=== PATIENT | male | born 1970 | race Caucasian/White ===

== ENCOUNTER → 2018-11-05 | Outpatient (CLI) | payer OTHER ==
--- NOTE | 2018-11-05 14:04 | CT ---
EXAMINATION TYPE: CT ankle LT wo con DATE OF EXAM: 11/05/2018 COMPARISON: Radiograph 10/31/2018 HISTORY: 47-year-old male Displaced bimalleolar Fracture of Left ankle TECHNIQUE: Contiguous axial scanning of the left ankle without IV contrast. Coronal and sagittal shyanne nstructions performed. CT DLP: 240 mGycm Automated exposure control for dose reduction was used. FINDINGS: Generalized soft tissue swelling. Overlying plaster cast. There is impacted and severely comminuted fracture of the distal fibula with lateral displacement of 6 mm and lateral angulation as well. The degree of angulation away from the tibia suggests tears of t he anterior and posterior syndesmotic ligaments. There is lateral displacement of the foot relative to the tibial mortise with transverse fracture thr ough the base of the medial malleolus, 6 mm of lateral displacement, and 8 mm of distraction of fract ure. No posterior malleolus fracture is identified. Extensive punctate bony debris is present above the ankle fractures. The talar dome itself appears to be intact. Additional punctate bony debris in the expected location of the ATFL and PTFL. No additional acute fracture seen. There is some thickening along the flexor tendons along the plantar aspect of the mid to hindfoot jus t prior to the knot of Jaime measuring 2.9 cm long and 1.3 cm wide, axial image 72 and sagittal image 29. IMPRESSION: 1. UNSTABLE BIMALLEOLAR ANKLE FRACTURES. THE LATERAL MALLEOLUS FRACTURE IS IMPACTED, MARKEDLY COMMINU ALMAZ, AND LATERALLY ANGULATED. THE DEGREE OF ANGULATION AWAY FROM THE TIBIA RAISES SUSPICION FOR UNDER LYING TEARS OF THE ANTERIOR AND POSTERIOR SYNDESMOTIC LIGAMENTS. 2. TRANSVERSE FRACTURE THROUGH THE BASE OF THE MEDIAL MALLEOLUS SHOWS 6 MM OF LATERAL DISPLACEMENT AN D 8 MM OF FRACTURE DISTRACTION. THERE IS AN UNSTABLE ANKLE MORTISE WITH LATERAL SUBLUXATION OF THE TA TRACY/FOOT. 3. PUNCTATE BONY DEBRIS IN THE EXPECTED REGION OF THE ATFL AND PTFL SUGGESTS LIGAMENT TEARS. 4. ELONGATED THICKENING ALONG THE FLEXOR TENDONS AT THE PLANTAR ASPECT OF THE MID TO HINDFOOT JUST OK IOR TO THE KNOT OF JAIME (THICKENING MEASURING 2.9 X 1.3 CM). THIS COULD REPRESENT A GANGLION CYST, F OCAL TENOSYNOVITIS, OR OTHER ABNORMALITY SUCH A GIANT CELL TUMOR OF THE TENDON SHEATH.
== END | disposition home or self-care (01) ==
LOC: RADCTMAIN 13:04
PROVIDERS: ATTEND Orthopaedic Surgery
DX: S82.842A Displaced bimalleolar fracture of left lower leg, initial encounter for closed fracture (principal)

== ENCOUNTER 2018-11-27 10:24 | Day surgery (SDC) | payer OTHER ==
[2018-11-24 12:52] VITALS: BMI 23.0
[~2018-11-27 10:24] MED LIST: HYDROmorphone 0.5 MG/0.5 ML SYRINGE IVP PRN; LACTATED RINGERS 1,000 ML IV SCH; MORPHINE SULFATE 4 MG/ML SYRINGE IV PRN; ceFAZolin IN SWFI 2 GM/20 ML SYRINGE IVP ONE
[2018-11-27 11:20] LABS: Basophils # (A) 0.1 k/uL (0-0.2); Basophils % (A) 1 %; Eosinophils # (A) 0.3 k/uL (0-0.7); Eosinophils % (A) 3 %; HCT 48.4 % (39.0-53.0); HGB 15.9 gm/dL (13.0-17.5); Lymphocytes % (A) 12 %; MCH 32.8 pg (25.0-35.0); MCHC 32.9 g/dL (31.0-37.0); MCV 99.8 fL (80.0-100.0); Mean Platelet Volume 7.2; Monocytes # (A) 0.4 k/uL (0-1.0); Monocytes % (A) 5 %; Neutrophils # (A) 6.7 k/uL (1.3-7.7); Neutrophils % (A) 78 %; Platelet Count 449 k/uL (150-450); RBC 4.85 m/uL (4.30-5.90); RDW 13.4 % (11.5-15.5); WBC 8.6 k/uL (3.8-10.6)
[2018-11-27] MEDS ORDERED: MIDAZOLAM (PF) 2 MG/2 ML VIAL IVP ONE (12:14)
[2018-11-27] MEDS ORDERED: fentaNYL (PF) 50 MCG/ML 2 ML AMP IVP ONE (12:15)
[2018-11-27] MEDS ORDERED: LIDOCAINE 2%-EPI 1:100,000 20 ML VIAL ONE (12:25)
[2018-11-27] MEDS ORDERED: ONDANSETRON 4 MG/2 ML VIAL IVP ONE (12:32)
[2018-11-27] MEDS ORDERED: DEXAMETHASONE SOD PHOSPHATE 10 MG/ML 1 ML VIAL IV ONE (12:33)
[2018-11-27] MEDS ORDERED: LACTATED RINGERS 1,000 ML IV ONE ×2 (12:36→14:13)
--- NOTE | 2018-11-27 13:55 | P.ONQ ---
Anesthesiology Proc Note - PNB - Peripheral Nerve Block Performed Left Adductor Canal Single Procedure Start Time: 12:13 Procedure Stop Time: 12:15 Indication: Acute Post-Operative Pain, Analgesia, Requested by physician Preparation: Sterile Prep Position: Supine Catheter: Indwelling Needle Types: On-Q Needle Size: 100mm (4") Needle Gauge: 21 Technique: Ultrasound Injectate: Other (see comment) (0.25% ropivacaine 10cc with 2% lidocaine with epi 1:200k 10cc) Blood Aspirated: No Pain Paresthesia on Injection Noted: No Resistance on Injection: Normal Events: Uneventful and Well Tolerated
--- NOTE | 2018-11-27 13:56 | P.ONQ ---
Anesthesiology Proc Note - PNB - Peripheral Nerve Block Performed Left Popliteal Single Procedure Start Time: 12:16 Procedure Stop Time: 12:19 Indication: Acute Post-Operative Pain, Analgesia, Requested by physician Sedation Type: Sedate with meaningful contact maintained Preparation: Sterile Prep Position: Supine Catheter: Indwelling Needle Types: On-Q Needle Size: 100mm (4") Needle Gauge: 21 Technique: Ultrasound Injectate: Other (see comment) (0.25% ropivacaine 10cc with 2% lidocaine with epi 1:200k 10cc) Blood Aspirated: No Pain Paresthesia on Injection Noted: No Resistance on Injection: Normal Events: Uneventful and Well Tolerated
--- NOTE | 2018-11-27 14:37 | P.OP ---
Date of Procedure: 11/27/18 Preoperative Diagnosis: 1. Closed left bimalleolar ankle fracture 2. Current every day cigarette smoker Postoperative Diagnosis: 1. Closed left bimalleolar ankle fracture, 4 weeks out from initial injury 2. Current every day cigarette smoker Procedure(s) Performed: 1. Open reduction and internal fixation of left bimalleolar ankle fracture 2. Application of joint stress by physician for radiography, left ankle 3. Application of short leg splint by physician, left ankle Anesthesia: DUNCANA Surgeon: Denis Borja Hypo Splasher #1: Vu Tapia Estimated Blood Loss (ml): 10 IV fluids (ml): 900 Pathology: none sent Condition: stable Disposition: PACU Indications for Procedure: The patient is a very pleasant 47-year-old male with a medical history significant for being a current every day cigarette smoker who sustained a left bimalleolar ankle fracture in October. He was initially seen in the ER and was referred to our office. I saw the patient in late October and ordered a computed tomography scan. We discussed the need for surgical intervention. The patient missed multiple appointments with me until coming back to our office last week. My recommendation was to stabilize his ankle with surgery. The patient and I had a long discussion on the potential risks and complications of surgery including but not limited to risk of anesthesia, superficial infection, deep infection, delayed wound healing, superficial wound necrosis, deep wound necrosis, damage to local blood vessels or nerves, nonunion the fracture sites, malunion of the fracture sites, malreduction of the syndesmosis, malreduction of the ankle mortise, symptomatic hardware, chronic pain, chronic swelling, posttraumatic ankle arthritis, difficulty ambulating following surgery, and inability to regain preinjury level of function, DVT, PE, and possibly loss of life or limb. The patient voiced his understanding of these potential complications and also acknowledges that other less common complications are possible. The patient understands that he is at an increased risk of having a complication due to his cigarette smoking. He was strongly advised to quit smoking. We also discussed that since he is 4 weeks out from his injury fract ure reduction may be more difficult. He provided his verbal and written consent to go forward with surgery. Operative Findings: Prior to starting surgery fluoroscopy shots were taken showing significant lateral subluxation of the talus out of the ankle mortise. Under live fluoroscopy I was unable to completely reduce the talus in the ankle mortise prior to surgery. Both the medial and lateral malleolus had started to heal and were very difficult to debride back to healthy-appearing bone. I was unable to get a good cortical read for reduction a lateral malleolus due to the amount of comminution and healing. The medial malleolus was very difficult to reduce back to the tibia. Description of Procedure: The patient was identified in preoperative holding and the correct left ankle was marked with my initials. I reviewed the consent form with the patient and all of his questions were answered. The patient was given a popliteal and sa phenous nerve block by anesthesia. He was then brought back to the OR and positioned on the OR table where a general anesthetic and preoperative antibiotics were administered. A tourniquet was applied the proximal aspect of the left leg. A bump was placed on the left buttock to internally rotate the leg. The right leg was secured to the table with foam and tape. A ramp was placed under the left leg to facilitate imaging. Prior to starting surgery timeout was performed identifying the correct patient, extremity, and surgical procedure. The splint was taken down and there was wrinkling of the skin. At this point fluoroscopy was brought in and fluoroscopic images were taken. I was unable to reduce the talus and the mortise prior to starting surgery. The left leg was then prepped and draped in standard sterile fashion. The leg was elevated, exsanguinated with an Esmarch bandage, and the tourniquet was inflated to 250 mmHg. I began by outlining incisions with a skin marker over the medial lateral malleolus. Lateral incision was made with a 15 blade scalpel and dissection was carried down carefully to the subcutaneous tissue with tenotomy scissors. The periosteum and fascia over the distal fibula sharply elevated. On inspection there is significant healing of the fibular fracture with abundant callus formation. This was gently taken down distally at the level of the fracture. In addition to significant healing having taken place there is also comminution. Great care was taken to free up and debride the fracture to allow reduction of the ankle mortise, but at the same time not cause additional damage. Attention was then turned to the medial malleolus. Skin incision was made with a scalpel and dissection was carried down to the subcutaneous tissue with tenotomy scissors. The saphenous vein and nerve were identified and carefully retracted. Similarly to the lateral side there was abundant healing and callus formation at the fracture site medially. This was gently debrided back to bone. Dissection was carried anteriorly to the level of the ankle joint and posteriorly to the level of the posterior tibial tendon. A 2.0 mm drill bit was used to create a unicortical perforation just proximal to the fracture. The medial malleolus was significantly scarred in and very difficult to mobilize. With additional soft tissue release I was able to gently tease the medial malleolus or fragment back to the proximal fracture line. Due to the amount of healing was very difficult to get a cortical read. Once the fracture was close a large [id number] reduction clamp was used to hold the reduction and compress the fracture site. One angela was placed in the previously made drill hole the second angela was placed at the tip of the medial malleolus. 2 nonlocking 3.5 mm screws were placed across the medial malleolus generating excellent compression. Fluoroscopy was used to assess the reduction and placement of the hardware. Attention was then turned laterally. Again there were significant comminution and healing which made reduction difficult. The fibula was gently pulled out to length. An attempt was made to clamp the fracture together, but due to the amount of comminution and poor bone quality was difficult to get compression. Once the fibula appeared to be relatively out to length it was pinned in place with a 0.0625 K wire. A 5 hole precontoured distal fibular locking plate was centered over the bone proximally. Distally it was sitting slightly anterior but also screw holes were over bone. The plate was held down to bone and 3 nonlocking 3.5 mm screws were placed proximal to the fracture. A nonlocking 2.7 mm screw was placed distally bringing the plate down to bone. I then placed locking 2.7 mm screws into the distal fragment. The nonlocking 2.7 mm screw was then exchanged for a locking screw. For additional fixation due to the patient's poor bone quality and level of comminution I placed a tetra cortical syndesmotic screw just above the syndesmosis. Final fluoroscopic images were taken. The fibula appeared to be out to length. There was slight widening of the medial clear space which did not appear to change with manual external rotation stress. There was no widening of the syndesmosis. Lateral x-ray showed the talus centered under the tibial plafond. The wounds were thoroughly irrigated and closed in layers with 0 Vicryl for the fascial layer, 2-0 Vicryl for the subcu, and 3-0 Monocryl for the skin. The skin incisions were reinforced with a running subcuticular 3-0 Monocryl stitch. The skin was reinforced with Brown quarter inch stretchy Steri-Strips. The tourniquet was let down. I verified that all instrument, sponge, and sharp counts were correct. A sterile dressing consisting of Betadine soaked Adaptic, 4 x 4, and web roll was applied. The drapes were taken down and a well-padded bulky Marcus splint was placed with the ankle in neutral. The patient was awoken from his anesthetic, transferred to a gurney, and brought to recovery without procedure well. Vu Tapia PA-C was required as a skilled administrative assistant receptionist for patient positioning, surgical exposure, retraction, placement of hardware, closure of wounds, and application of splint. Plan: The patient is to remain strictly nonweightbearing on his left leg. He is to leave his splint on at all times. He was given a prescription for Percocet and a stool softener for pain and bowel prophylaxis. He'll be given aspirin 325 mg twice daily for DVT prophylaxis. He is to use crutches or knee scooter for ambulation. He is to keep his splint clean and dry at all times. He was instructed to ice and elevate to help with pain and swelling. He was strongly encouraged to quit smoking. He'll follow-up in 2 weeks for splint removal, wound check, and nonweightbearing x-rays the left ankle.
--- NOTE | 2018-11-27 14:52 | XR ---
Fluoroscopy INDICATION: Pain FINDINGS: Fluoroscopy time: 58 seconds. Images obtained: 2. Images demonstrate open reduction internal fixation of the distal fibula and medi al malleolus IMPRESSIONS: 1. Documentation of fluoroscopy.
--- NOTE | 2018-11-27 14:53 | FL ---
Fluoroscopy INDICATION: Pain FINDINGS: Fluoroscopy time: 58 seconds. Images obtained: 2. IMPRESSIONS: 1. Documentation of fluoroscopy.
[2018-11-27] MEDS ORDERED: PROPOFOL 10 MG/ML 20 ML VIAL IV ONE (14:55)
[2018-11-27] MEDS ORDERED: SUCCINYLCHOLINE CHLORIDE 100 MG/5 ML SYR IV ONE (14:55)
[2018-11-27] MEDS ORDERED: ROPIVACAINE 5 MG/ML 30 ML VIAL ONE (14:55)
[2018-11-27] MEDS ORDERED: MIDAZOLAM 2 MG/2 ML VIAL ONE (14:55)
[2018-11-27] MEDS ORDERED: DEXAMETHASONE SOD PHOSPHATE 4 MG/ML 1 ML VIAL ONE (14:55)
[2018-11-27] MEDS ORDERED: LIDOCAINE 1% INJ 10MG/ML (20 ML MDV) ONE (14:55)
[2018-11-27] MEDS ORDERED: fentaNYL (PF) 50 MCG/ML 2 ML AMP ONE (14:55)
[2018-11-27] MEDS ORDERED: KETAMINE 10 MG/ML 20 ML VIAL ONE (14:55)
[2018-11-27 15:00] VITALS: RESP 16; TEMP 97.6
[2018-11-27] MEDS ORDERED: oxyCODONE-APAP 7.5-325MG 1 EACH TAB PO ONE (15:55)
[2018-11-27 16:11] VITALS: BP 130/82; PULSE 83
== END 2018-11-27 16:38 | disposition home or self-care (01) ==
LOC: OR 10:24
PROVIDERS: ATTEND Orthopaedic Surgery
DX: S82.842A Displaced bimalleolar fracture of left lower leg, initial encounter for closed fracture (principal); F17.210 Nicotine dependence, cigarettes, uncomplicated
CPT/HCPCS: 27814; 64447; 64450; 85025; 73600; C1713; J2250 ×2; J1100 ×2; J2405; J2001; J3010; J2795; J0330; J2704; J0690; 64445

== ENCOUNTER 2018-12-13 01:06 | Emergency (ER) | payer OTHER ==
--- NOTE | 2018-12-13 01:27 | ED ---
General Adult HPI - General Chief complaint: Extremity Problem,Nontraumatic Stated complaint: Chest Pain Time Seen by Provider: 12/13/18 01:26 Source: patient, EMS Mode of arrival: EMS Limitations: no limitations - History of Present Illness Initial comments: Patient is a 48-year-old gentleman is brought to the emergency department today via EMS for evaluation of leg pain, chest pain, shortness of breath and concern for anxiety attack. Patient reports his legs been hurting since he broke it, is currently in a cast. He reports his [place] is are not helping him. Patient states that this evening he was at the bar drinking beer he is feeling fine at that time. He states that he then decided to leave the bar he was walking using his crutches he felt like his leg began throbbing he then states he began to feel like he was short of breath from walking and began to feels that he is having a panic attack at which time he decided to call the ambulance for further evaluation. Patient denies any cardiac history. - Related Data Home Medications Medication Instructions Recorded Confirmed HYDROcodone/APAP 10-325MG [[place] 1 tab PO QID PRN //11/27/18 10-325] Previous Rx's Medication Instructions Recorded Naproxen 500 mg PO Q12HR #14 09/25/14 Aspirin 325 mg PO BID #28 tab 11/27/18 Docusate [Colace] 100 mg PO DAILY #20 capsule 11/27/18 oxyCODONE HCL/ACETAMINOPHEN 1 tab PO Q4HR PRN #40 tab 11/27/18 [Percocet 10-325 mg] Allergies Allergy/AdvReac Type Severity Reaction Status Date / Time No Known Allergies Allergy Verified 11/27/18 10:51 Review of Systems ROS Statement: Those systems with pertinent positive or pertinent negative responses have been documented in the HPI. ROS Other: All systems not noted in ROS Statement are negative. Past Medical History Past Medical History: Hypertension Additional Past Medical History / Comment(s): no rx for BP currently, varicose veins, fx left ankle-has cast on History of Any Multi-Drug Resistant Organisms: None Reported Past Surgical History: Orthopedic Surgery Additional Past Surgical History / Comment(s): rt thumb skin graft, Past Anesthesia/Blood Transfusion Reactions: No Reported Reaction Past Psychological History: No Psychological Hx Reported Smoking Status: Current every day smoker Past Alcohol Use History: Daily Past Drug Use History: Marijuana - Past Family History Mother Family Medical History: Cancer Additional Family Medical History / Comment(s): lung cancer General Exam - General Exam Comments Initial Comments: Physical Exam GENERAL: Patient is well-developed and well-nourished. Patient is nontoxic and well-hydrated and is in no distress. HENT: Normocephalic, Atraumatic. EYES: PERRL, EOMI PULMONARY: Unlabored respirations. No audible rales rhonchi or wheezing was noted. CARDIOVASCULAR: There is a regular rate and rhythm without any murmurs gallops or rubs. ABDOMEN: Soft and nontender with normal bowel sounds. SKIN: Skin is clear with no lesions or rashes and otherwise unremarkable. : Deferred NEUROLOGIC: Patient is alert and oriented x3. Moving all extremities spontaneously MUSCULOSKELETAL: Normal extremities with adequate strength and full range of motion. Left lower extremity and cast PSYCHIATRIC: Normal psychiatric evaluation. Limitations: no limitations Limitations: no limitations Course Vital Signs 12/13/18 01:17 Temperature 98.0 F Pulse Rate 79 Respiratory 18 Rate Blood Pressure 132/98 O2 Sat by Pulse 98 Oximetry EKG Findings - EKG Comments: EKG Findings:: EKG was obtained due to the complaint of chest pain, EKG obtained at 1:15 AM, rate is 76, rhythm is sinus there is normal axis there are normal intervals, ND 158, QRS 156, QTC is 474 is a right bundle branch block. There are no acute ST elevations or depressions no evidence of acute ischemia or infa rction. EKG was compared to EKG obtained on November 27 there is no significant change in morphology. Medical Decision Making - Medical Decision Making The patient was seen and evaluated history was obtained from the patient and EMS Patient reports he began feeling anxious and short of breath after drinking alcohol and using his crutches to walk home. Patient denies any cardiac history. Given that the patient has a cast on his leg he is high risk for DVT and therefore high risk for PE, d-dimer will not be obtained we will proceed with a CT PE study Pt sleeping comfortably pain-free throughout his stay in the emergency department. Results were discussed with the patient, troponin was negative EKG was unchanged him a computed tomography scan with no signs of pulmonary embolism or acute pathology of the chest HEART score 2 - age, risk factors (smoking) Results were discussed with the patient who is agreeable with plan for discharge home - Lab Data Result diagrams: 12/13/18 02:01 12/13/18 02:01 Lab Results 12/13/18 12/13/18 12/13/18 Range/Units 02:01 02:01 02:01 WBC 7.5 (3.8-10.6) k/uL RBC 4.17 L (4.30-5.90) m/uL Hgb 13.5 (13.0-17.5) gm/dL Hct 42.5 (39.0-53.0) % MCV 101.8 H (80.0-100.0) fL MCH 32.5 (25.0-35.0) pg MCHC 31.9 (31.0-37.0) g/dL RDW 12.8 (11.5-15.5) % Plt Count 324 (150-450) k/uL Neutrophils % 62 % Lymphocytes % 26 % Monocytes % 5 % Eosinophils % 4 % Basophils % 1 % Neutrophils # 4.7 (1.3-7.7) k/uL Lymphocytes # 1.9 (1.0-4.8) k/uL Monocytes # 0.4 (0-1.0) k/uL Eosinophils # 0.3 (0-0.7) k/uL Basophils # 0.1 (0-0.2) k/uL Macrocytosis Slight PT (9.0-12.0) sec INR (<1.2) APTT (22.0-30.0) sec Sodium 141 (137-145) mmol/L Potassium 4.4 (3.5-5.1) mmol/L Chloride 106 (98-107) mmol/L Carbon Dioxide 28 (22-30) mmol/L Anion Gap 7 mmol/L BUN 18 (9-20) mg/dL Creatinine 0.74 (0.66-1.25) mg/dL Est GFR (CKD-EPI)AfAm >90 (>60 ml/min/1.73 sqM) Est GFR (CKD-EPI)NonAf >90 (>60 ml/min/1.73 sqM) Glucose 87 (74-99) mg/dL Calcium 9.0 (8.4-10.2) mg/dL Magnesium 2.1 (1.6-2.3) mg/dL Total Bilirubin 0.3 (0.2-1.3) mg/dL AST 27 (17-59) U/L ALT 20 L (21-72) U/L Alkaline Phosphatase 66 (38-126) U/L Troponin I (0.000-0.034) ng/mL NT-Pro-B Natriuret Pep 12 pg/mL Total Protein 6.8 (6.3-8.2) g/dL Albumin 4.3 (3.5-5.0) g/dL 12/13/18 12/13/18 Range/Units 02:01 02:01 WBC (3.8-10.6) k/uL RBC (4.30-5.90) m/uL Hgb (13.0-17.5) gm/dL Hct (39.0-53.0) % MCV (80.0-100.0) fL MCH (25.0-35.0) pg MCHC (31.0-37.0) g/dL RDW (11.5-15.5) % Plt Count (150-450) k/uL Neutrophils % % Lymphocytes % % Monocytes % % Eosinophils % % Basophils % % Neutrophils # (1.3-7.7) k/uL Lymphocytes # (1.0-4.8) k/uL Monocytes # (0-1.0) k/uL Eosinophils # (0-0.7) k/uL Basophils # (0-0.2) k/uL Macrocytosis PT 10.2 (9.0-12.0) sec INR 0.9 (<1.2) APTT 23.9 (22.0-30.0) sec Sodium (137-145) mmol/L Potassium (3.5-5.1) mmol/L Chloride (98-107) mmol/L Carbon Dioxide (22-30) mmol/L Anion Gap mmol/L BUN (9-20) mg/dL Creatinine (0.66-1.25) mg/dL Est GFR (CKD-EPI)AfAm (>60 ml/min/1.73 sqM) Est GFR (CKD-EPI)NonAf (>60 ml/min/1.73 sqM) Glucose (74-99) mg/dL Calcium (8.4-10.2) mg/dL Magnesium (1.6-2.3) mg/dL Total Bilirubin (0.2-1.3) mg/dL AST (17-59) U/L ALT (21-72) U/L Alkaline Phosphatase (38-126) U/L Troponin I <0.012 (0.000-0.034) ng/mL NT-Pro-B Natriuret Pep pg/mL Total Protein (6.3-8.2) g/dL Albumin (3.5-5.0) g/dL Disposition Clinical Impression: Atypical chest pain Disposition: HOME SELF-CARE Condition: Stable Instructions (If sedation given, give patient instructions): Noncardiac Chest Pain (ED) Is patient prescribed a controlled substance at d/c from ED?: No Referrals: Meri Vega MD [Primary Care Provider] - 1-2 days
[2018-12-13 02:24] LABS: Basophils # (A) 0.1 k/uL (0-0.2); Basophils % (A) 1 %; Eosinophils # (A) 0.3 k/uL (0-0.7); Eosinophils % (A) 4 %; HCT 42.5 % (39.0-53.0); HGB 13.5 gm/dL (13.0-17.5); Lymphocytes # (A) 1.9 k/uL (1.0-4.8); Lymphocytes % (A) 26 %; MCH 32.5 pg (25.0-35.0); MCHC 31.9 g/dL (31.0-37.0); MCV 101.8 fL (80.0-100.0); Macrocytosis Slight; Mean Platelet Volume 6.9; Monocytes # (A) 0.4 k/uL (0-1.0); Monocytes % (A) 5 %; Neutrophils # (A) 4.7 k/uL (1.3-7.7); Neutrophils % (A) 62 %; Platelet Count 324 k/uL (150-450); RBC 4.17 m/uL (4.30-5.90); RDW 12.8 % (11.5-15.5); WBC 7.5 k/uL (3.8-10.6)
[2018-12-13 02:30] LABS: INR 0.9 (<1.2); Partial Thromboplastin Time 23.9 sec (22.0-30.0); Prothrombin Time 10.2 sec (9.0-12.0)
[2018-12-13 02:33] LABS: ALT 20 U/L (21-72); AST 27 U/L (17-59); Albumin 4.3 g/dL (3.5-5.0); Alkaline Phosphatase 66 U/L (38-126); Anion Gap 7 mmol/L; Blood Urea Nitrogen 18 mg/dL (9-20); Carbon Dioxide 28 mmol/L (22-30); Chloride 106 mmol/L (98-107); Glucose 87 mg/dL (74-99); Magnesium 2.1 mg/dL (1.6-2.3); Potassium 4.4 mmol/L (3.5-5.1); Sodium 141 mmol/L (137-145); Total Bilirubin 0.3 mg/dL (0.2-1.3); Total Protein 6.8 g/dL (6.3-8.2)
--- NOTE | 2018-12-13 02:50 | CT ---
EXAM: CT Angiography Chest With Intravenous Contrast CLINICAL HISTORY: ITS.REASON CT Reason: CP, SOB, Left leg in cast TECHNIQUE: Axial computed tomographic angiography images of the chest with intravenous contrast using pulmonary embolism protocol. CTDI is 7 mGy and DLP is 278 mGy-cm. This CT exam was performed using one or more of the following dose reduction techniques: automated exposure control, adjustment of the mA and/or kV according to patient size, and/or use of iterative reconstruction technique. MIP reconstructed images were created and reviewed. COMPARISON: No relevant prior studies available. FINDINGS: Pulmonary arteries: No filling defects. Aorta: No thoracic aortic aneurysm. Lungs: No mass. No consolidation. Mild paraseptal emphysema. Pleural space: No significant effusion. No pneumothorax. Heart: No cardiomegaly or pericardial effusion. Bones/joints: No acute fracture or dislocation. Soft tissues: Unremarkable. Lymph nodes: No enlarged lymph nodes. IMPRESSION: No acute intrathoracic findings. No pulmonary embolism.
[2018-12-13 04:15] VITALS: BP 143/88; PULSE 69; RESP 16; TEMP 98.3
== END 2018-12-13 04:16 | disposition home or self-care (01) ==
LOC: EC 01:06
DX: R07.89 Other chest pain (principal); R06.02 Shortness of breath; M79.604 Pain in right leg; M79.605 Pain in left leg; Z97.8 Presence of other specified devices; F17.200 Nicotine dependence, unspecified, uncomplicated
CPT/HCPCS: 36415; 93005; 83880; 80053; 83735; 84484; 85025; 85610; 85730; 71275; 99285; Q9967

== ENCOUNTER 2019-03-03 01:21 | Observation (INO) | payer OTHER ==
[2019-03-03] MEDS ORDERED: SODIUM CHLORIDE 0.9% 500 ML 500 ML IV STA (01:45)
[2019-03-03] MEDS ORDERED: NITROGLYCERIN OINT 1 INCH/GM PACKET TOPICAL STA (01:45)
--- NOTE | 2019-03-03 01:45 | ED ---
Chest Pain HPI - General Stated Complaint: Chest pain Time Seen by Provider: 03/03/19 01:32 Source: EMS Mode of arrival: EMS Limitations: no limitations - History of Present Illness Initial Comments: Roland is a 48 yo male with PMH of retention of hyperlipidemia who presents to the emergency department today for evaluation of chest pain. Patient reports that a month or month and a half ago he was experiencing chest pain and he went to [facility] where he reports they did labs and a computed tomography scan and told him that nothing was wrong. Patient reports that today he was sitting at home with his girlfriend when he began feeling stabbing pain in left side of his chest. Patient states that he gets pain with a exertion at times though he has not exerted himself today since the pain began. Patient contacted EMS, he was given aspirin and nitro. He reports his pain improved from a 7 in intensity to only a 3 in intensity after nitro. Patient states that he has never undergone a cardiac workup he has never had a stress test or been seen by leisure travel agent in the past. MD Complaint: chest pain -: minutes(s) Onset: during rest Pain Location: substernal, left chest Pain Radiation: none Severity: moderate Severity scale (1-10): 7 Quality: sharp Consistency: constant Improves With: nitroglycerin Worsens With: exertion Treatments Prior to Arrival: aspirin, nitroglycerin, oxygen - Related Data Home Medications Medication Instructions Recorded Confirmed HYDROcodone/APAP 10-325MG [[place] 1 tab PO QID PRN 01/11/14 11/27/18 10-325] Previous Rx's Medication Instructions Recorded Naproxen 500 mg PO Q12HR #14 09/25/14 Aspirin 325 mg PO BID #28 tab 11/27/18 Docusate [Colace] 100 mg PO DAILY #20 capsule 11/27/18 oxyCODONE HCL/ACETAMINOPHEN 1 tab PO Q4HR PRN #40 tab 11/27/18 [Percocet 10-325 mg] Allergies Allergy/AdvReac Type Severity Reaction Status Date / Time No Known Allergies Allergy Verified 03/03/19 01:36 Review of Systems ROS Statement: Those systems with pertinent positive or pertinent negative responses have been documented in the HPI. ROS Other: All systems not noted in ROS Statement are negative. EKG Findings - EKG Comments: EKG Findings:: EKG was obtained due to the complaint of chest pain, EKG was obtained at 1:42 AM, rate of 74 rhythm is sinus, there is normal axis there is a right bundle-branch block, AK 162, QRS 152, QTc is 481 there are no acute ST elevations or depressions there is no evidence of acute ischemia or infarction. Past Medical History Past Medical History: Hyperlipidemia, Hypertension Additional Past Medical History / Comment(s): no rx for BP currently, varicose veins, fx left ankle-has cast on, History of Any Multi-Drug Resistant Organisms: None Reported Past Surgical History: Orthopedic Surgery Additional Past Surgical History / Comment(s): rt thumb skin graft, left ankle, Past Anesthesia/Blood Transfusion Reactions: No Reported Reaction Past Psychological History: No Psychological Hx Reported Smoking Status: Current every day smoker Past Alcohol Use History: Daily Past Drug Use History: Marijuana - Past Family History Mother Family Medical History: Cancer Additional Family Medical History / Comment(s): lung cancer General Exam - General Exam Comments Initial Comments: Physical Exam GENERAL: Patient is well-developed and well-nourished. Patient is nontoxic and well-hydrated and is in no distress. Patient smells of alcohol HENT: Normocephalic, Atraumatic. EYES: PERRL, EOMI PULMONARY: Unlabored respirations. No audible rales rhonchi or wheezing was noted. CARDIOVASCULAR: There is a regular rate and rhythm without any murmurs gallops or rubs. ABDOMEN: Soft and nontender with normal bowel sounds. SKIN: Skin is clear with no lesions or rashes and otherwise unremarkable. : Deferred NEUROLOGIC: Patient is alert and oriented x3. Moving all extremities spontaneously MUSCULOSKELETAL: Normal extremities with adequate strength and full range of motion. No lower extremity swelling or edema. No calf tenderness. PSYCHIATRIC: Normal psychiatric evaluation Limitations: no limitations Course Vital Signs 03/03/19 03/03/19 01:22 02:35 Temperature 97.7 F 97.6 F Pulse Rate 76 75 Respiratory 18 17 Rate Blood Pressure 115/80 126/93 O2 Sat by Pulse 95 99 Oximetry Chest Pain MDM - MDM The patient was seen and evaluated, history is obtained from the patient Is a 48-year-old [place] who admits to daily drinking, chronic cigarette smoking, occasional marijuana smoking, patient also has a history of hypertension, hyperlipidemia. Patient is presenting with stabbing left sided chest pain that improved with nitro Full cardiac workup was ordered Initial EKG is nonischemic Initial labs are relatively unremarkable aside from elevated alcohol level as well as mildly elevated lipase next line given the patient's presentation with chest pain. Recommend admission to the hospital for evaluation by cardiology. Patient is agreeable to this. IV fluids were ordered due to the patient's elevated lipase level. Disposition Clinical Impression: Chest pain Disposition: ADMITTED IP TO THIS HOSP Condition: Stable Referrals: Meri Vega MD [Primary Care Provider] - 1-2 days
[2019-03-03 02:10] LABS: Basophils # (A) 0.1 k/uL (0-0.2); Basophils % (A) 1 %; Eosinophils # (A) 0.2 k/uL (0-0.7); Eosinophils % (A) 3 %; HCT 43.3 % (39.0-53.0); HGB 13.7 gm/dL (13.0-17.5); Lymphocytes # (A) 1.4 k/uL (1.0-4.8); Lymphocytes % (A) 25 %; MCH 32.7 pg (25.0-35.0); MCHC 31.7 g/dL (31.0-37.0); MCV 103.3 fL (80.0-100.0); Macrocytosis Slight; Monocytes # (A) 0.3 k/uL (0-1.0); Monocytes % (A) 5 %; Neutrophils # (A) 3.6 k/uL (1.3-7.7); Neutrophils % (A) 63 %; Platelet Count 248 k/uL (150-450); RBC 4.19 m/uL (4.30-5.90); RDW 13.8 % (11.5-15.5); WBC 5.7 k/uL (3.8-10.6)
--- NOTE | 2019-03-03 02:12 | XR ---
EXAM: XR Chest, 2 Views CLINICAL HISTORY: ITS.REASON XR Reason: Chest Pain TECHNIQUE: Frontal and lateral views of the chest. COMPARISON: 09/23/14 FINDINGS: Lungs: No consolidation or mass. Pleural space: No effusion. Heart: No cardiomegaly. Mediastinum: Unremarkable. Bones/joints: No acute findings. IMPRESSION: No acute cardiopulmonary process.
[2019-03-03 02:23] LABS: ALT 25 U/L (21-72); AST 55 U/L (17-59); African American GFR (CKD) >90 (>60 ml/min/1.73 sqM); Albumin 4.5 g/dL (3.5-5.0); Alkaline Phosphatase 76 U/L (38-126); Anion Gap 13 mmol/L; Blood Urea Nitrogen 13 mg/dL (9-20); Calcium 8.8 mg/dL (8.4-10.2); Carbon Dioxide 22 mmol/L (22-30); Chloride 106 mmol/L (98-107); Glucose 61 mg/dL (74-99); Magnesium 1.9 mg/dL (1.6-2.3); Potassium 4.5 mmol/L (3.5-5.1); Sodium 141 mmol/L (137-145); Total Bilirubin 0.4 mg/dL (0.2-1.3)
[2019-03-03 02:36] LABS: Alcohol 243 mg/dL
[2019-03-03] MEDS ORDERED: NITROGLYCERIN SL TABS 0.4 MG TAB SUBLINGUAL PRN (02:40)
[2019-03-03 02:44] LABS: INR 0.9 (<1.2); Partial Thromboplastin Time 23.4 sec (22.0-30.0); Prothrombin Time 10.1 sec (9.0-12.0)
[2019-03-03 03:12] LABS: Appearance,Urine Clear (Clear); Bilirubin,Urine Negative (Negative); Blood,Urine Negative (Negative); Color,Urine Light Yellow; Glucose,Urine (UA) Negative (Negative); Ketones,Urine Negative (Negative); Leukocyte Esterase,Urine Negative (Negative); Nitrite,Urine Negative (Negative); PH, Urine 5.5 (5.0-8.0); Protein,Urine Negative (Negative); Specific Gravity,Urine 1.009 (1.001-1.035); Urobilinogen,Urine <2.0 mg/dL (<2.0)
[2019-03-03 03:24] LABS: Amphetamine Screen,Urine Not Detected (NotDetected); Barbiturate Screen,Urine Not Detected (NotDetected); Benzodiazepines Screen,Urine Not Detected (NotDetected); Cocaine Screen,Urine Not Detected (NotDetected); Methadone Screen, Urine Not Detected (NotDetected); Opiate Screen,Urine Detected (NotDetected); Oxycodone Screen, Urine Not Detected (NotDetected); Phencyclidine Screen,Urine Not Detected (NotDetected); Tricyclic Antidepressant,Urine Not Detected (NotDetected); Urn Cannabinoid Scrn Not Detected (NotDetected)
[2019-03-03] MEDS: SODIUM CHLORIDE 0.9% 1,000 ML IV SCH ×2 (06:07→20:23)
[2019-03-03 08:36] LABS: Glucose,Whole Blood 68 mg/dL (75-99)
[2019-03-03] MEDS ORDERED: METOPROLOL TARTRATE 12.5 MG TAB PO STA (08:47)
[2019-03-03] MEDS ORDERED: ENOXAPARIN 80 MG/0.8 ML SYRINGE SQ STA (08:48)
[2019-03-03 08:57] LABS: Glucose,Whole Blood 88 mg/dL (75-99)
[2019-03-03] MEDS: ASPIRIN 325 MG TAB PO SCH (09:10)
[2019-03-03] MEDS: amLODIPine 5 MG TAB PO SCH (09:11)
--- NOTE | 2019-03-03 10:25 | P.CRDCN ---
History of Present Illness History of present illness: This is a pleasant 48-year-old male past medical history significant for hypertension, dyslipidemia and chronic nicotine dependence. He states he drinks alcohol 2-3 times per week. He denies history of coronary artery disease and does not follow with a motion picture scene builder for any reason. We have been asked to see him in consultation secondary to chest discomfort. He states last night around midnight he was sitting down with his girlfriend having a couple of beers when he noticed a sharp stabbing pain in the left precordial region. There is no radiation to the arm, back, neck or jaw. He was having this chest discomfort he noticed that he was mildly short of breath, he became acutely diaphoretic and he felt his heart beating rapidly. He states this also happened approximately 4 weeks ago with a similar presentation while at rest with pain, shortness of breath diaphoresis and palpitations. He was evaluated at another facility however did not undergo any cardiac testing at that time. He is seen and examined resting comfortably in bed in no acute distress. He has had no further symptoms of chest discomfort. EKG reveals sinus mechanism with right bundle branch block pattern. Chest x-ray is negative for an acute cardiopulmonary process. Laboratory data reviewed, WBC 5.7, hemoglobin 13.7, platelets 248, d-dimer 0.83, sodium 141, potassium 4.5, creatinine 0.68, magnesium 1.9, cardiac enzymes negative 2, proBNP 30, lipase 459, blood alcohol content 243. Current daily cardiac medications include Lopressor 25 mg daily per the patient. At the time of my exam: CONSTITUTIONAL: Denies fever. Denies chills. EYES: Denies blurred vision. Denies vision changes. Denies eye pain. EARS, NOSE, MOUTH & THROAT: Denies headache. Denies sore throat. Denies ear pain. CARDIOVASCULAR: Denies chest pain. Denies shortness of breath. Denies orthopnea. Denies PND. Denies palpitations. RESPIRATORY: Denies cough. GASTROINTESTINAL: Denies abdominal pain. Denies diarrhea. Denies constipation. Denies nausea. Denies vomiting. MUSCULOSKELETAL: Denies myalgias. INTEGUMENTARY: Denies pruitis. Denies rash. NEUROLOGIC: Denies numbness. Denies tingling. Denies weakness. PSYCHIATRIC: Denies anxiety. Denies depression. ENDOCRINE: Denies fatigue. Denies weight change. Denies polydipsia. Denies polyurina. GENITOURINARY: Denies burning, hematuria or urgency with micturation. HEMATOLOGIC: Denies history of anemia. Denies bleeding. Blood pressure 160/88 heart rate 78 afebrile maintaining oxygen saturation on room air GENERAL: This is a 48-year-old 48 in no apparent distress at the time of my examination. HEENT: Head is atraumatic, normocephalic. Pupils are equal, round. Sclerae anicteric. Conjunctivae are clear. Mucous membranes of the mouth are moist. Neck is supple. There is no jugular venous distention. No carotid bruit is heard. LUNGS: Coarse scattered rhonchi and expiratory wheezes, no rales. No chest wall tenderness is noted on palpation or with deep breathing. HEART: Regular rate and rhythm without murmurs, rubs or gallops. S1 and S2 heard. ABDOMEN: Soft, nontender. Bowel sounds are heard. No organomegaly noted. EXTREMITIES: No evidence of peripheral edema and no calf tenderness noted. VASCULAR: Radial and dorsalis pedis pulses palpated, no evidence of clubbing. NEUROLOGIC: Patient is awake, alert and oriented x3. ASSESSMENT Chest pain, atypical for angina. An acute coronary event has been ruled out. Hypertension Dyslipidemia Chronic nicotine dependence PLAN Patient has having significant amount of wheezing recommend undergoing updraft treatments this morning and again this afternoon and once his respiratory status improves we'll perform a stress test tomorrow morning. Obtain 2-D echocardiogram and Doppler study to assess cardiac structure and function. Initiate on amlodipine 5 mg daily. Give 1 dose of Lovenox 80 mg SQ. Check lipid panel and d-dimer. Smoking and alcohol cessation strongly recommended. Thank you kindly for this consultation. Nurse Practitioner note has been reviewed, I agree with a documented findings and plan of care. Patient was seen and examined. Past Medical History Past Medical History: Hyperlipidemia, Hypertension Additional Past Medical History / Comment(s): no rx for BP currently, varicose veins, fx left ankle History of Any Multi-Drug Resistant Organisms: None Reported Past Surgical History: Orthopedic Surgery Additional Past Surgical History / Comment(s): rt thumb skin graft, left ankle Past Anesthesia/Blood Transfusion Reactions: No Reported Reaction Past Psychological History: Depression Smoking Status: Current every day smoker Past Alcohol Use History: Daily Additional Past Alcohol Use History / Comment(s): reports drinking 2-3 times per week Past Drug Use History: Marijuana - Past Family History Mother Family Medical History: Cancer Additional Family Medical History / Comment(s): lung cancer Medications and Allergies Home Medications Medication Instructions Recorded Confirmed Type HYDROcodone/APAP 10-325MG [[place] 1 tab PO QID PRN 01/11/14 03/03/19 History 10-325] Naproxen 500 mg PO Q12HR #14 09/25/14 03/03/19 Rx tiZANidine HCL [Zanaflex] 4 mg PO DAILY 03/03/19 03/03/19 History Allergies Allergy/AdvReac Type Severity Reaction Status Date / Time No Known Allergies Allergy Verified 03/03/19 07:35 Physical Exam Vitals: Vital Signs Temp Pulse Pulse Resp BP BP Pulse Ox 03/03/19 07:58 98.2 F 78 16 160/88 95 03/03/19 04:00 97.8 F 76 15 130/79 98 03/03/19 02:35 97.6 F 75 17 126/93 99 03/03/19 01:22 97.7 F 76 18 115/80 95 Intake and Output 03/02/19 03/03/19 03/03/19 22:59 06:59 14:59 Other: Voiding Method Toilet # Voids 0 Weight 77.111 kg Results 03/03/19 01:38 03/03/19 01:38 Cardiac Enzymes 03/03/19 03/03/19 Range/Units 01:38 01:38 AST 55 (17-59) U/L Troponin I <0.012 (0.000-0.034) ng/mL Coagulation 03/03/19 Range/Units 01:38 PT 10.1 (9.0-12.0) sec APTT 23.4 (22.0-30.0) sec CBC 03/03/19 Range/Units 01:38 WBC 5.7 (3.8-10.6) k/uL RBC 4.19 L (4.30-5.90) m/uL Hgb 13.7 (13.0-17.5) gm/dL Hct 43.3 (39.0-53.0) % Plt Count 248 (150-450) k/uL Comprehensive Metabolic Panel 03/03/19 Range/Units 01:38 Sodium 141 (137-145) mmol/L Potassium 4.5 (3.5-5.1) mmol/L Chloride 106 (98-107) mmol/L Carbon Dioxide 22 (22-30) mmol/L BUN 13 (9-20) mg/dL Creatinine 0.68 (0.66-1.25) mg/dL Glucose 61 L (74-99) mg/dL Calcium 8.8 (8.4-10.2) mg/dL AST 55 (17-59) U/L ALT 25 (21-72) U/L Alkaline Phosphatase 76 (38-126) U/L Total Protein 7.0 (6.3-8.2) g/dL Albumin 4.5 (3.5-5.0) g/dL Current Medications Generic Name Dose Route Start Last Admin Trade Name Freq PRN Reason Stop Dose Admin Aspirin 325 mg 03/04/19 09:00 Aspirin PO DAILY JOSIAH Sodium Chloride 1,000 mls @ 100 mls/hr 03/03/19 02:45 03/03/19 06:07 Saline 0.9% IV 100 mls/hr .Q10H JOSIAH Administration Nitroglycerin 0.4 mg 03/03/19 02:40 Nitrostat SUBLINGUAL Q5M PRN Chest Pain Intake and Output 03/02/19 03/03/19 03/03/19 22:59 06:59 14:59 Other: Voiding Method Toilet # Voids 0 Weight 77.111 kg 03/03/19 01:38 03/03/19 01:38
[2019-03-03] MEDS: IPRATROPIUM-ALBUTEROL 3 ML NEB INHALATION SCH ×3 (10:40→18:59)
--- NOTE | 2019-03-03 11:01 | ECHOF ---
Referral Reason:cp MEASUREMENTS -------- HEIGHT: 182.9 cm WEIGHT: 77.1 kg BP: RVIDd: 2.9 cm (< 3.3) IVSd: 1.0 cm (0.6 - 1.1) LVIDd: 5.3 cm (3.9 - 5.3) LVPWd: 1.1 cm (0.6 - 1.1) IVSs: 1.7 cm LVIDs: 3.2 cm LVPWs: 1.8 cm LA Diam: 3.4 cm (2.7 - 3.8) LAESV Index (A-L): 27.96 ml/m Ao Diam: 3.3 cm (2.0 - 3.7) AV Cusp: 1.7 cm (1.5 - 2.6) MV EXCURSION: 17.570 mm (> 18.000) MV EF SLOPE: 101 mm/s (70 - 150) EPSS: 0.4 cm MV E Wong: 0.87 m/s MV DecT: 254 ms MV A Wong: 0.86 m/s MV E/A Ratio: 1.02 FINDINGS -------- Sinus rhythm. This was a technically adequate study. The left ventricular size is normal. Left ventricular wall thickness is normal. Overall left vent ricular systolic function is normal with, an EF between 60 - 65 %. The right ventricle is normal in size. Normal LA size by volume 22+/-6 ml/m2. The right atrium is normal in size. Interatrial and interventricular septum intact. The aortic valve is trileaflet and appears structurally normal. The mitral valve is normal. The tricuspid valve appears structurally normal. The pulmonic valve was not well visualized. The aortic root size is normal. Normal inferior vena cava with normal inspiratory collapse consistent with estimated right atrial pre ssure of 5 mmHg. There is no pericardial effusion. CONCLUSIONS -------- 1. Sinus rhythm. 2. This was a technically adequate study. 3. The left ventricular size is normal. 4. Left ventricular wall thickness is normal. 5. Overall left ventricular systolic function is normal with, an EF between 60 - 65 %. 6. The right ventricle is normal in size. 7. Normal LA size by volume 22+/-6 ml/m2. 8. The right atrium is normal in size. 9. Interatrial and interventricular septum intact. 10. The aortic valve is trileaflet and appears structurally normal. 11. The mitral valve is normal. 12. The tricuspid valve appears structurally normal. 13. The pulmonic valve was not well visualized. 14. The aortic root size is normal. 15. Normal inferior vena cava with normal inspiratory collapse consistent with estimated right atrial pressure of 5 mmHg. 16. There is no pericardial effusion. LITIGATION COUNSEL: Myriam Montes RDCS
--- NOTE | 2019-03-03 11:31 | CT ---
EXAMINATION TYPE: CT angio chest DATE OF EXAM: 03/03/2019 COMPARISON: 12/13/2018 HISTORY: Shortness of breath, elevated d-dimer CT DLP: 3121 mGycm CONTRAST: CTA thoracic aorta with 3-D reconstruction is performed and with IV Contrast, patient injected with 1 00 mL of Isovue 370. Contrast CTA of the thoracic aorta was performed from the lung apex through the upper abdomen. 3D re construction imaging obtained at a separate workstation. CT Chest: THORACIC AORTA: No evidence for thoracic aortic aneurysm. Mild atheromatous changes seen. There is n o evidence for dissection or periaortic collection. LUNGS: The lungs are clear and free of infiltrate or atelectasis. No pulmonary nodule or mass is det ected. No pleural effusion or CT evidence of interstitial lung disease. MEDIASTINUM: No evidence for mediastinal hematoma. The heart is not enlarged. No evidence for med iastinal mass or adenopathy. HILAR STRUCTURES: No evidence for mass. No hilar adenopathy is appreciated. OTHER: No significant abnormality. IMPRESSION- No evidence for pulmonary embolism.
[2019-03-03 11:58] LABS: Cholesterol 196 mg/dL (<200); Triglycerides 73 mg/dL (<150)
[2019-03-03 12:07] LABS: LDL Cholesterol,Calculated 53 mg/dL (0-99)
[2019-03-03 12:13] LABS: HDL Cholesterol 128 mg/dL (40-60)
--- NOTE | 2019-03-03 12:38 | P.HPIM ---
History of Present Illness This is a pleasant 48 years old male with past medical history of Hyperlipidemia, hypertension, cigarette smoker, marijuana use. Who presents because of chest pain of one-day duration, chest pain is on the left side nonradiating about 8/10 in severity now is resolved associated with some dyspnea which went away with breathing treatment. Patient has dry cough. However he denies headache or abdominal pain or change in urine habits. No fever. Patient is hemodynamically stable except for mild hypertension with blood pressure 159/94. CBC and BMP were unremarkable, d-dimer is elevated at 0.83. liver enzymes were not elevated, 2 sets of troponins are negative. Urinalysis is negative, urine drug screen is positive for opiates. Serum alcohol level is 243. CT ANGIO of the chest : Negative for pulmonary embolism, no other significant abnormality per radiologist. Echo: Ejection fraction 60-65% Patient got 1 dose of Lovenox 80 mg this morning, also is on aspirin 325 mg, no accessory started at 5 mg. He started also on normal saline at 100 mL per hour Review of Systems CONSTITUTIONAL: No fever, no malaise, no fatigue. HEENT: No recent visual problems or hearing problems. Denied any sore throat. CARDIOVASCULAR: No orthopnea, PND, no palpitations, no syncope. PULMONARY: No shortness of breath, no cough, no hemoptysis. GASTROINTESTINAL: No diarrhea, no nausea, no vomiting, no abdominal pain. Normoactive bowel sounds. NEUROLOGICAL: No headaches, no weakness, no numbness. HEMATOLOGICAL: Denies any bleeding or petechiae. GENITOURINARY: Denies any burning micturition, frequency, or urgency. MUSCULOSKELETAL/RHEUMATOLOGICAL: Denies any joint pain, swelling, or any muscle pain. ENDOCRINE: Denies any polyuria or polydipsia. Past Medical History Past Medical History: Hyperlipidemia, Hypertension Additional Past Medical History / Comment(s): no rx for BP currently, varicose veins, fx left ankle History of Any Multi-Drug Resistant Organisms: None Reported Past Surgical History: Orthopedic Surgery Additional Past Surgical History / Comment(s): rt thumb skin graft, left ankle Past Anesthesia/Blood Transfusion Reactions: No Reported Reaction Past Psychological History: Depression Smoking Status: Current every day smoker Past Alcohol Use History: Daily Additional Past Alcohol Use History / Comment(s): reports drinking 2-3 times per week Past Drug Use History: Marijuana - Past Family History Mother Family Medical History: Cancer Additional Family Medical History / Comment(s): lung cancer Medications and Allergies Home Medications Medication Instructions Recorded Confirmed Type HYDROcodone/APAP 10-325MG [[place] 1 tab PO QID PRN 01/11/14 03/03/19 History 10-325] Naproxen 500 mg PO Q12HR #14 09/25/14 03/03/19 Rx tiZANidine HCL [Zanaflex] 4 mg PO DAILY 03/03/19 03/03/19 History Allergies Allergy/AdvReac Type Severity Reaction Status Date / Time No Known Allergies Allergy Verified 03/03/19 07:35 Physical Exam Vitals: Vital Signs Temp Pulse Pulse Resp BP BP Pulse Ox 03/03/19 11:29 98.2 F 66 17 159/94 95 03/03/19 11:03 84 03/03/19 10:55 80 03/03/19 07:58 98.2 F 78 16 160/88 95 03/03/19 04:00 97.8 F 76 15 130/79 98 03/03/19 02:35 97.6 F 75 17 126/93 99 03/03/19 01:22 97.7 F 76 18 115/80 95 Intake and Output 03/02/19 03/03/19 03/03/19 22:59 06:59 14:59 Other: Voiding Method Toilet Toilet # Voids 0 Weight 77.111 kg GENERAL: The patient is alert and oriented x3, not in any acute distress. Well developed, well nourished. HEENT: Pupils are round and equally reacting to light. EOMI. No scleral icterus. No conjunctival pallor. Normocephalic, atraumatic. No pharyngeal erythema. No thyromegaly. CARDIOVASCULAR: S1 and S2 present. No murmurs, rubs, or gallops. PULMONARY: Chest is clear to auscultation, no wheezing or crackles. ABDOMEN: Soft, nontender, nondistended, normoactive bowel sounds. No palpable organomegaly. MUSCULOSKELETAL: No joint swelling or deformity. EXTREMITIES: No cyanosis, clubbing, or pedal edema. NEUROLOGICAL: Gross neurological examination did not reveal any focal deficits. SKIN: No rashes. Results CBC & Chem 7: 03/03/19 01:38 03/03/19 01:38 Labs: Abnormal Lab Results - Last 24 Hours (Table) 03/03/19 03/03/19 03/03/19 Range/Units 01:38 01:38 02:35 RBC 4.19 L (4.30-5.90) m/uL MCV 103.3 H (80.0-100.0) fL D-Dimer (<0.60) mg/L FEU Glucose 61 L (74-99) mg/dL POC Glucose (mg/dL) (75-99) mg/dL HDL Cholesterol (40-60) mg/dL Lipase 459 H (23-300) U/L Urine Opiates Screen Detected H (NotDetected) Serum Alcohol 243 H* mg/dL 03/03/19 03/03/19 03/03/19 Range/Units 07:31 07:31 08:34 RBC (4.30-5.90) m/uL MCV (80.0-100.0) fL D-Dimer 0.83 H (<0.60) mg/L FEU Glucose (74-99) mg/dL POC Glucose (mg/dL) 68 L (75-99) mg/dL HDL Cholesterol 128 H (40-60) mg/dL Lipase (23-300) U/L Urine Opiates Screen (NotDetected) Serum Alcohol mg/dL Thrombosis Risk Factor Assmnt - Choose All That Apply Any of the Below Risk Factors Present?: Yes Each Factor Represents 1 point: Age 41-60 years, Varicose veins Other Risk Factors: No Other congenital or acquired thrombophilia - If yes, enter type in comment: No Thrombosis Risk Factor Assessment Total Risk Factor Score: 2 Thrombosis Risk Factor Assessment Level: Low Risk Assessment and Plan Assessment: Chest pain, rule out acute coronary syndrome Elevated d-dimer. CTA of the chest is negative for PE Hypertension Hyperlipidemia Nicotine dependence Drinks 2-3 times per week, patient at risk of alcohol withdrawal Substance abuse, marijuana Plan: This is a pleasant 48 years old male who presents with chest pain, though cardiology consult Antral of the recommendation. We'll see her troponins and EKG. Continue with aspirin Labs and medication were reviewed.. Continue same treatment. Continue with symptomatic treatment. Resume home medication. Monitor lytes and vitals. DVT and GI prophylaxis. Further recommendations of the clinical course of the pa tient DVT prophylaxis: Subcutaneous heparin GI Prophylaxis: Pepcid PT/OT: Pending Prognosis is guarded
[2019-03-03 15:18] VITALS: BMI 23.0
[2019-03-03] MEDS: THIAMINE 100 MG TAB PO SCH (20:23)
[2019-03-04] MEDS: SODIUM CHLORIDE 0.9% 1,000 ML IV SCH (03:40)
[2019-03-04 07:51] VITALS: RESP 18
[2019-03-04] MEDS: IPRATROPIUM-ALBUTEROL 3 ML NEB INHALATION SCH (08:08)
[2019-03-04] MEDS ORDERED: DOBUTamine DRIP for NUC MED 500 MG in DEXTROSE/WATER 1 250ML.BAG IV ONE (09:00)
[2019-03-04] MEDS ORDERED: ASPIRIN 325 MG TAB PO SCH (09:00)
[2019-03-04] MEDS ORDERED: ATROPINE SULFATE 0.1 MG/ML 10ML SYRINGE ONE (09:50)
[2019-03-04] MEDS ORDERED: METOPROLOL TARTRATE 5 MG/5 ML VIAL IVP ONE (09:50)
--- NOTE | 2019-03-04 09:55 | PN ---
PROGRESS NOTE Mr. Becerra is in sinus rhythm resting comfortably. He is a gentleman came in with an acute alcohol intoxication and complained of some chest pain. His troponins are normal. He is resting comfortably. His breathing is easier. Vitals are stable. S1, S2 heard normally, short systolic murmur noted. Blood pressure is slightly elevated. However, lungs reveal improved air entry. Abdomen and lower extremity exam unchanged. Plan is to perform a stress test today. Based on this, we will make further recommendations. MMODL / IJN: [id number] /
[2019-03-04] MEDS: ASPIRIN 325 MG TAB PO SCH (10:28)
[2019-03-04] MEDS: THIAMINE 100 MG TAB PO SCH (10:29)
[2019-03-04] MEDS: amLODIPine 5 MG TAB PO SCH (10:29)
[2019-03-04 11:34] VITALS: BP 153/97; PULSE 74; TEMP 97.6
--- NOTE | 2019-03-04 12:25 | ECHOS ---
STRESS ECHOCARDIOGRAM INDICATIONS: Chest pain BASELINE HEART RATE: 55 BASELINE BLOOD PRESSURE: 154/101 MAXIMUM HEART RATE: 160 MAXIMUM BLOOD PRESSURE: 146/78 85% MPHR: 145 100% MPHR: 171 MAXIMUM STAGE REACHED: IV TOTAL EXERCISE TIME: 12:00 CLINICAL INFORMATION: Baseline EKG revealed sinus mechanism with a right ventricular conduction delay. The patient was administered dobutamine as per protocol and heart rate went up to 160 beats per minute, blood pressure changed from 154/101 to 146/78. As exercise progressed, there was QRS widening and he went into a full-blown right bundle branch block pattern. There was no evidence to suggest any angina. There was no significant arrhythmia. Maximal heart rate was about 162 beats per minute. This is a technically inconclusive dobutamine stress test by EKG criteria because of a bundle branch block. Baseline echo images revealed normal wall motion and wall thickening of all segments. Ejection fraction seemed to be at the low end of normal. With dobutamine administration, there was good augmentation of left ventricular wall motion and wall thickening of all segments suggesting that there is no evidence of stress-induced ischemia. FINAL IMPRESSION: 1. By EKG criteria, this is an inconclusive dobutamine stress test because of QRS widening and right bundle branch block pattern. 2. Normal dobutamine stress echocardiogram. MMODL / IJN: [id number] /
--- NOTE | 2019-03-04 13:04 | P.DS ---
Providers Date of admission: 03/03/19 02:40 Attending physician: Pedro John Consults: 03/03/19 02:40 Consult Physician Urgent Consulting Provider: [facility] Consult Reason/Comments: chest pain - hx HTN, Alcohol abuse Do you want consulting provider notified?: Yes, Notify in am Primary care physician: Gary Jerez [facility] Course: Discharge diagnoses: Chest pain, with negative stress test Elevated d-dimer. CTA of the chest is negative for PE Hypertension Hyperlipidemia Nicotine dependence Drinks 2-3 times per week, patient at risk of alcohol withdrawal Substance abuse, marijuana History of fall and surgery on as per patient, on his left foot, which is in cast. Patient follows up with orthopedic as an outpatient Hospital course: This is a pleasant 48 years old male with past medical history of Hyperlipidemia, hypertension, cigarette smoker, marijuana use. Who presents because of chest pain of one-day duration, patient has been evaluated by acetylene torch operator. Patient underwent stress test which came back normal. Also he had a negative CT of the chest for pulmonary embolism. Echo: Ejection fraction 60-65%. Patient was stressed symptomatically and he showed interval improvement in his back to his baseline. Has no chest pain. Denies shortness of breath. No change in urine or bowel habits. No fever. No signs symptoms of alcohol withdrawal. Patient is back to his baseline to think he can be discharged home. Patient was cleared for discharge by cardiology team Problems and management plan were discussed with the patient and he verbalized understanding and acceptance Patient was found stable and can be discharged home however he needs follow-up as an outpatient. Patient agrees with the appointments made for him with his PCP and acetylene torch operator and states he will follow-up Gen: patient is a AAOx3, no distress CVS: S1-S2, RRR, no murmur Lungs: B/L CTA, no wheezing Abdomen: soft, no distention, no tenderness, positive bowel sounds Extremity: no leg edema or induration Time spent more than 35 minutes Patient Condition at Discharge: Stable Plan - Discharge Summary Discharge Rx Participant: No New Discharge Prescriptions: New amLODIPine [Norvasc] 5 mg PO DAILY #90 tab No Action HYDROcodone/APAP 10-325MG [[place] 10-325] 1 tab PO QID PRN PRN Reason: Pain Naproxen 500 mg PO Q12HR #14 tiZANidine HCL [Zanaflex] 4 mg PO DAILY Discharge Medication List HYDROcodone/APAP 10-325MG [[place] 10-325] 1 tab PO QID PRN 01/11/14 [History] Naproxen 500 mg PO Q12HR #14 09/25/14 [Rx] tiZANidine HCL [Zanaflex] 4 mg PO DAILY 03/03/19 [History] amLODIPine [Norvasc] 5 mg PO DAILY #90 tab 03/04/19 [Rx] Follow up Appointment(s)/Referral(s): Anita Roque MD [STAFF PHYSICIAN] - 1 Week (Office to call with appointment) Meri Vega MD [Primary Care Provider] - (Appointmet is kerry for march 12 at 1:10 pm)
--- NOTE | 2019-03-04 13:12 | P.PN ---
Subjective This is a pleasant 48-year-old male past medical history significant for hypertension, dyslipidemia and chronic nicotine dependence. He states he drinks alcohol 2-3 times per week. He denies history of coronary artery disease and does not follow with a mft for any reason. We have been asked to see him in consultation secondary to chest discomfort. He states last night around midnight he was sitting down with his girlfriend having a couple of beers when he noticed a sharp stabbing pain in the left precordial region. There is no radiation to the arm, back, neck or jaw. He was having this chest discomfort he noticed that he was mildly short of breath, he became acutely diaphoretic and he felt his heart beating rapidly. He states this also happened approximately 4 weeks ago with a similar presentation while at rest with pain, shortness of breath diaphoresis and palpitations. He was evaluated at another facility however did not undergo any cardiac testing at that time. He is seen and examined resting comfortably in bed in no acute distress. He has had no further symptoms of chest discomfort. EKG reveals sinus mechanism with right bundle branch block pattern. Chest x-ray is negative for an acute cardiopulmonary process. Laboratory data reviewed, WBC 5.7, hemoglobin 13.7, platelets 248, d-dimer 0.83, sodium 141, potassium 4.5, creatinine 0.68, magnesium 1.9, cardiac enzymes negative 2, proBNP 30, lipase 459, blood alcohol content 243. Current daily cardiac medications include Lopressor 25 mg daily per the patient. 03/04/2019 Pt is seen and examined resting comfortably in no acute distress. He has had no further symptoms of chest discomfort. Updrafts have helped his wheezing. Echocardiogram was performed reveals normal LV systolic function with ejection fraction 60-65%. Blood pressure 153/97 heart rate 74 afebrile maintaining oxygen saturation on room air. CTA chest negative for pulmonary embolism with no evidence of aortic aneurysm with mild erythematous changes noted. He underwent a dobutamine stress echocardiogram today that was negative for stress- induced ischemia. GENERAL: This is a 48-year-old 48 in no apparent distress at the time of my examination. HEENT: Head is atraumatic, normocephalic. Pupils are equal, round. Sclerae anicteric. Conjunctivae are clear. Mucous membranes of the mouth are moist. Neck is supple. There is no jugular venous distention. No carotid bruit is heard. LUNGS: Coarse scattered rhonchi and expiratory wheezes, no rales. No chest wall tenderness is noted on palpation or with deep breathing. HEART: Regular rate and rhythm without murmurs, rubs or gallops. S1 and S2 heard. EXTREMITIES: No evidence of peripheral edema and no calf tenderness noted. ASSESSMENT Chest pain, atypical for angina. An acute coronary event has been ruled out. Hypertension Dyslipidemia Chronic nicotine dependence PLAN Stress test has been obtained and reviewed, there is no evidence of stress- induced ischemia. Stable from a cardiac perspective. Ongoing alcohol and tobacco cessation recommended. Nurse Practitioner note has been reviewed, I agree with a documented findings and plan of care. Patient was seen and examined. Objective - Vital Signs Vital signs: Vital Signs Temp 97.6 F 03/04/19 11:32 Pulse 74 03/04/19 11:32 Resp 18 03/04/19 11:32 BP 153/97 03/04/19 11:32 Pulse Ox 100 03/04/19 11:32 Intake & Output 03/03/19 03/04/19 03/04/19 18:59 06:59 18:59 Intake Total 240 Balance 240 Weight 77.111 kg Intake: Oral 240 Other: Voiding Method Toilet Toilet Toilet # Voids 1 - Labs CBC & Chem 7: 03/03/19 01:38 03/03/19 01:38
== END 2019-03-04 13:17 | disposition home or self-care (01) ==
LOC: EC 01:21 → 1SOBS 02:40
PROVIDERS: ADMIT Hospitalist; ATTEND Hospitalist
DX: R07.2 Precordial pain (principal); R06.00 Dyspnea, unspecified; R61 Generalized hyperhidrosis; R05 Cough; R00.2 Palpitations; R06.02 Shortness of breath; R06.2 Wheezing; R79.89 Other specified abnormal findings of blood chemistry; R74.8 Abnormal levels of other serum enzymes; I10 Essential (primary) hypertension; E78.5 Hyperlipidemia, unspecified; F17.210 Nicotine dependence, cigarettes, uncomplicated; F12.10 Cannabis abuse, uncomplicated; I45.10 Unspecified right bundle-branch block; Z91.81 History of falling; I83.90 Asymptomatic varicose veins of unspecified lower extremity; F10.129 Alcohol abuse with intoxication, unspecified; Y90.8 Blood alcohol level of 240 mg/100 ml or more; Z79.899 Other long term (current) drug therapy; Z79.1 Long term (current) use of non-steroidal anti-inflammatories (NSAID); Z80.1 Family history of malignant neoplasm of trachea, bronchus and lung; Z97.8 Presence of other specified devices
CPT/HCPCS: 96372; 99285; 36415; 94640 ×2; 94760; 93005; 93306; 93351; 85379; 83880; 80061; 80053; 83690; 83735; 84484; 85025; 85610; 85730; 81003; 80306; 71046; 71275; G0378 ×2; G0480; J1250; J0461; J1650; Q9967; 80320

== ENCOUNTER 2019-06-18 17:21 | Emergency (ER) | payer OTHER ==
[2019-06-18 17:30] VITALS: BP 139/73; PULSE 93; RESP 20; TEMP 98.1
--- NOTE | 2019-06-18 17:57 | XR ---
EXAMINATION TYPE: XR hand complete RT DATE OF EXAM: 06/18/2019 CLINICAL HISTORY: Patient hit his hand with a hammer. TECHNIQUE: Frontal, lateral and oblique images of the right hand are obtained. COMPARISON: None. FINDINGS: There is no acute fracture/dislocation evident in the right hand. The joint spaces in the right hand appear within normal limits. The overlying soft tissue appears unremarkable. IMPRESSION: There is no acute fracture or dislocation in the right hand.
--- NOTE | 2019-06-18 18:19 | ED ---
General Adult HPI - General Chief complaint: Extremity Injury, Upper Stated complaint: RT HAND INJURY Time Seen by Provider: 06/18/19 17:39 Source: patient Mode of arrival: ambulatory Limitations: no limitations - History of Present Illness Initial comments: Patient is a 48-year-old male presenting to emergency Department with a chief complaint of right hand pain. Patient reports about 3 days ago he hit his right hand with a hammer. Patient reports the trauma occurred on the posterior aspect of her right hand. Patient reports swelling in the right hand which is barely decreased. Patient also reports limited range of motion in digits 2 through 5. Patient does report some numbness and tingling. Patient reports the pain is still 10 out of 10. Patient does report previous injuries to the right hand which is the result of his soft tissue deformity on the medial aspect of her right hand. Patient also reports a previous injury to the distal end of the first digit on the right hand. - Related Data Home Medications Medication Instructions Recorded Confirmed HYDROcodone/APAP 10-325MG [[place] 1 tab PO QID PRN 01/11/14 03/03/19 10-325] tiZANidine HCL [Zanaflex] 4 mg PO DAILY 03/03/19 03/03/19 Previous Rx's Medication Instructions Recorded Naproxen 500 mg PO Q12HR #14 09/25/14 Aspirin 325 mg PO DAILY #30 tab 03/04/19 Nitroglycerin Sl Tabs [Nitrostat] 0.4 mg SUBLINGUAL Q5M PRN #20 tab 03/04/19 Thiamine [Vitamin B-1] 100 mg PO DAILY #30 tab 03/04/19 amLODIPine [Norvasc] 5 mg PO DAILY #90 tab 03/04/19 Allergies Allergy/AdvReac Type Severity Reaction Status Date / Time No Known Allergies Allergy Verified 06/18/19 17:30 Review of Systems ROS Statement: Those systems with pertinent positive or pertinent negative responses have been documented in the HPI. ROS Other: All systems not noted in ROS Statement are negative. Past Medical History Past Medical History: Hyperlipidemia, Hypertension Additional Past Medical History / Comment(s): no rx for BP currently, varicose veins, fx left ankle History of Any Multi-Drug Resistant Organisms: None Reported Past Surgical History: Orthopedic Surgery Additional Past Surgical History / Comment(s): rt thumb skin graft, left ankle Past Anesthesia/Blood Transfusion Reactions: No Reported Reaction Past Psychological History: Depression Smoking Status: Current every day smoker Past Alcohol Use History: Daily Past Drug Use History: Marijuana - Past Family History Mother Family Medical History: Cancer Additional Family Medical History / Comment(s): lung cancer General Exam Limitations: no limitations General appearance: alert, in no apparent distress Head exam: Present: atraumatic, normocephalic, normal inspection Eye exam: Present: normal appearance Pupils: Present: normal accommodation ENT exam: Present: normal exam, mucous membranes moist Neck exam: Present: normal inspection, full ROM Respiratory exam: Present: normal lung sounds bilaterally Cardiovascular Exam: Present: regular rate, normal rhythm, normal heart sounds Extremities exam: Present: full ROM, tenderness (Right hand tenderness along the metacarpal bones.), normal capillary refill, other (+2 ulnar and radial pulses bilaterally.). Absent: normal inspection (Swelling but no ecchymosis right hand. Soft tissue deformity from previous injury and the medial aspect of her right hand.) Back exam: Present: normal inspection, full ROM Neurological exam: Present: alert, oriented X3 Psychiatric exam: Present: normal affect, normal mood Skin exam: Present: warm, intact, normal color Course Vital Signs 06/18/19 17:28 Temperature 98.1 F Pulse Rate 93 Respiratory 20 Rate Blood Pressure 139/73 O2 Sat by Pulse 98 Oximetry Medical Decision Making - Medical Decision Making Patient is a 48-year-old male presenting to the emergency department with a chief complaint of right hand injury. X-ray of the right hand is negative for acute fractures or dislocations. Considering the patient is still having severe pain and this has been ongoing issue for [address] CT is indicative of soft tissue swelling with a small area of fluid which could possibly be a hematoma. Clinically correlated this is due to a previous injury which caused a permanent soft tissue deformity along the medial aspect of the right arm. CT is also showing a bony deformity on distal end of the first digit. Again, this is due to a previous injury. Patient given Toradol in the ED. Patient also given a Tylenol 3 starter pack. Patient advised not to drive or operative heavy machinery when taking the medication. I advised the patient to have a splint applied but he declined states that he wants to leave. Patient eloped. His son was present with him and sign the paperwork. Patient advised to follow-up with contracting specialist for further management. Strict return parameters were thoroughly discussed the patient was under standing and agreeable. Case discussed physician. Disposition Clinical Impression: Contusion of right hand, Swelling of right hand Disposition: HOME SELF-CARE Condition: Stable Instructions (If sedation given, give patient instructions): Hand Sprain (ED) Additional Instructions: Please follow up with an contracting specialist. Please return to emergency department if symptoms worsen. Is patient prescribed a controlled substance at d/c from ED?: No Referrals: Meri Vega MD [Primary Care Provider] - 1-2 days Vijay Lara DO [Doctor of Osteopathic Medicine] - 1-2 days Time of Disposition: 19:08
--- NOTE | 2019-06-18 18:50 | CT ---
EXAMINATION TYPE: CT hand RT wo con DATE OF EXAM: 06/18/2019 COMPARISON: X-rays of the right hand of the same date HISTORY: RT hand hit by hammer CT DLP: 213.10 mGycm Automated exposure control for dose reduction was used. TECHNIQUE: CT images of the right hand were obtained in the axial, sagittal, and coronal planes. FINDINGS: There is a well-circumscribed 1.7 x 1.3 x 2.2 cm superficial fluid collection overlying the lateral a spect of the fifth distal metacarpal. This is predominantly near the volar surface. No significant in flammatory fat stranding surrounding this. Remainder the soft tissues are unremarkable. Subtle oblique lucency is seen at the volar aspect of the base of the first distal phalanx on sagitta l image 78 that could represent a vascular groove or acute nondisplaced fracture. Correlate with site of injury. No significant overlying soft tissue swelling. No additional fracture is seen. Carpal car pal interspaces are maintained. Tendons and ligaments are limited on CT. Osseous mineralization is wi thin normal limits. No radiopaque foreign body seen. IMPRESSION: 1. 2.2 cm fluid collection overlying the distal fifth metacarpal that could represent hematoma, absce ss, or cystic neoplasm. No significant overlying soft tissue swelling nor underlying fracture. Correl ate with point tenderness, injury location, and chronicity with targeted history. 2. Very subtle oblique lucency of the volar surface of the base of the first distal phalanx. This is favored to represent simply a vascular groove although subtle hairline intra-articular nondisplaced n oncomminuted acute fracture is possible. Correlate with point tenderness. No additional fracture seen .
[2019-06-18] MEDS ORDERED: ACET/COD 300 MG/30 MG STARTER PACK 6 TAB BTL PO STA (18:58)
[2019-06-18] MEDS ORDERED: KETOROLAC 30 MG/ML 1 ML VIAL IM STA (18:58)
== END 2019-06-18 19:17 | disposition home or self-care (01) ==
LOC: EC 17:21
DX: S60.221A Contusion of right hand, initial encounter (principal); Z91.19 Patient's noncompliance with other medical treatment and regimen; I10 Essential (primary) hypertension; F32.9 Major depressive disorder, single episode, unspecified; F17.200 Nicotine dependence, unspecified, uncomplicated; Z79.899 Other long term (current) drug therapy; W27.8XXA Contact with other nonpowered hand tool, initial encounter
CPT/HCPCS: 99284

== ENCOUNTER 2023-10-09 04:10 | Emergency (ER) | payer BC, OTHER ==
[2023-10-09 04:36] VITALS: RESP 18; TEMP 97.8
--- NOTE | 2023-10-09 04:53 | ED ---
General Adult HPI - General Chief complaint: Abdominal Pain Stated complaint: Right flank pain Time Seen by Provider: 10/09/23 04:24 Source: patient, EMS Mode of arrival: EMS Limitations: no limitations - History of Present Illness Initial comments: Dictation was produced using [employer] dictation software. please excuse any grammatical, word or spelling errors. Chief Complaint: 52-year-old male presents with right-sided rib pain History of Present Illness: Patient is a 52-year-old male presents to the emergency department with couple hours of right-sided anterior rib pain. Patient states that he was drinking with his friends. He started to walk home all of a sudden he started to have right rib pain. Does not remember any trauma. Denies any shortness of breath. No nausea vomiting abdominal pain. Pain is sharp worse when he twists pressing on the area. The ROS documented in this emergency department record has been reviewed and confirmed by me. Those systems with pertinent positive or negative responses have been documented in the HPI. All other systems are other negative and/or noncontributory. - Related Data Home Medications Medication Instructions Recorded Confirmed HYDROcodone/APAP 10-325MG [[place] 1 tab PO QID PRN 06//03/03/19 10-325] tiZANidine HCL [Zanaflex] 4 mg PO DAILY 03/03/19 03/03/19 Previous Rx's Medication Instructions Recorded Naproxen 500 mg PO Q12HR #14 09/25/14 Aspirin 325 mg PO DAILY #30 tab 03/04/19 Nitroglycerin Sl Tabs [Nitrostat] 0.4 mg SUBLINGUAL Q5M PRN #20 tab 03/04/19 Thiamine [Vitamin B-1] 100 mg PO DAILY #30 tab 03/04/19 amLODIPine [Norvasc] 5 mg PO DAILY #90 tab 03/04/19 Allergies Allergy/AdvReac Type Severity Reaction Status Date / Time No Known Allergies Allergy Verified 06/18/19 17:30 Review of Systems ROS Statement: Those systems with pertinent positive or pertinent negative responses have been documented in the HPI. ROS Other: All systems not noted in ROS Statement are negative. Past Medical History Past Medical History: Hyperlipidemia, Hypertension Additional Past Medical History / Comment(s): no rx for BP currently, varicose veins, fx left ankle History of Any Multi-Drug Resistant Organisms: None Reported Past Surgical History: Orthopedic Surgery Additional Past Surgical History / Comment(s): rt thumb skin graft, left ankle Past Anesthesia/Blood Transfusion Reactions: No Reported Reaction Past Psychological History: Depression Smoking Status: Current every day smoker Past Alcohol Use History: Daily Past Drug Use History: Marijuana - Past Family History Mother Family Medical History: Cancer Additional Family Medical History / Comment(s): lung cancer General Exam - General Exam Comments Initial Comments: General: Well-appearing, nontoxic, no acute distress. Head: Normocephalic, atraumatic Eyes: PERRLA, EOMI ENT: Airway patent Chest: Nonlabored breathing, palpatory tenderness to the right lower anterior ribs Skin: No visual rash, normal skin tone Neuro: Alert and oriented 3 Musculoskeletal: No gross abnormalities Limitations: no limitations Course Vital Signs 10/09/23 10/09/23 04:13 06:10 Temperature 97.8 F Pulse Rate 76 71 Respiratory 18 18 Rate Blood Pressure 119/85 118/81 O2 Sat by Pulse 99 98 Oximetry Medical Decision Making - Medical Decision Making Was pt. sent in by a medical professional or institution (, PA, EDI CONSULTANT, urgent care, hospital, or senior living...) When possible be specific @ -No Did you speak to anyone other than the patient for history (EMS, parent, family, police, friend...)? What history was obtained from this source @ -No Did you review nursing and triage notes (agree or disagree)? Why? @ -I reviewed and agree with nursing and triage notes Were old charts reviewed (outside hosp., previous admission, EMS record, old EKG, old radiological studies, urgent care reports/EKG's, senior living records)? Report findings @ -No old charts were reviewed Differential Diagnosis (chest pain, altered mental status, abdominal pain women, abdominal pain men, vaginal bleeding, musculoskeletal, weakness, fever, dyspnea, syncope, headache, dizziness, GI bleed, back pain, seizure, CVA, palpatations, mental health)? @ -Differential Chest Pain: Stable Angina, Unstable Angina, STEMI, NSTEMI Aortic Dissection, Pneumothorax, Musculoskeletal, Esophageal Spasm GERD, Cholecystitis, Pancreatitis, Zoster, this is not meant to be an all-inclusive list. EKG interpreted by me (3pts min.). @ -None done X-rays interpreted by me (1pt min.). @ -Chest x-ray is nonacute CT interpreted by me (1pt min.). @ -None done U/S interpreted by me (1pt. min.). @ -None done What testing was considered but not performed or refused? (CT, X-rays, U/S, labs)? Why? @ -None What meds were considered but not given or refused? Why? @ -None Did you discuss the management of the patient with other professionals (professionals i.e. , PA, EDI CONSULTANT, lab, RT, psych nurse, social work associate, retirement officer, teacher, adult parole officer, caser)? Give summary @ -No Was smoking cessation discussed for >3mins.? @ -No Was critical care preformed (if so, how long)? @ -No Were there social determinants of health that impacted care today? How? (Homelessness, low income, unemployed, alcoholism, drug addiction, transportation, low edu. Level, literacy, decrease access to med. care, [facility], rehab)? @ -No Was there de-escalation of care discussed even if they declined (Discuss DNR or withdrawal of care, Hospice)? DNR status @ -No What co-morbidities impacted this encounter? (DM, HTN, Smoking, COPD, CAD, Cancer, CVA, ARF, Chemo, Hep., AIDS, mental health diagnosis, sleep apnea, mor bid obesity)? @ -None Was patient admitted / discharged? Hospital course, mention meds given and route, prescriptions, significant lab abnormalities, going to OR and other pertinent info. @ -52-year-old male with rib pain. Vital signs are stable. X-rays negative. Patient given Lidoderm patch. Observed emergency department for 2 hours and 3 minutes. Patient stable for discharge. Undiagnosed new problem with uncertain prognosis? @ -No Drug Therapy requiring intensive monitoring for toxicity (Heparin, Nitro, Insulin, Cardizem)? @ -No Were any procedures done? @ -No Diagnosis/symptom? Acute, or Chronic, or Acute on Chronic? Uncomplicated (without systemic symptoms) or Complicated (systemic symptoms)? @ -Rib pain Side effects of treatment? @ -No Exacerbation, Progression, or Severe Exacerbation? @ -No Poses a threat to life or bodily function? How? (Chest pain, [place], [place], pneumonia, PE, COPD, DKA, ARF, appy, cholecystitis, CVA, Diverticulitis, Homicidal, Suicidal, threat to staff... and all critical care pts) @ -No Disposition Clinical Impression: Rib pain Disposition: HOME SELF-CARE Condition: Good Instructions (If sedation given, give patient instructions): Costochondritis (ED) Is patient prescribed a controlled substance at d/c from ED?: No Referrals: None,Stated [Primary Care Provider] - 1-2 days Time of Disposition: 06:15
[2023-10-09] MEDS: LIDOCAINE 4% PATCH TOPICAL ONE (04:54)
--- NOTE | 2023-10-09 05:49 | XR ---
EXAMINATION TYPE: XR chest 2V DATE OF EXAM: 10/09/2023 COMPARISON: CT chest March 03, 2019 HISTORY: Right-sided anterior lower pain. TECHNIQUE: Frontal and lateral views of the chest are obtained. FINDINGS: There is no suspicious focal air space opacity, pleural effusion, or pneumothorax seen. T he cardiac silhouette size remains within normal limits. The osseous structures are intact. IMPRESSION: No acute cardiopulmonary process.
[2023-10-09 06:40] VITALS: BP 118/81; PULSE 71
== END 2023-10-09 06:35 | disposition home or self-care (01) ==
LOC: EC 04:10
DX: R07.81 Pleurodynia (principal); I10 Essential (primary) hypertension; F17.200 Nicotine dependence, unspecified, uncomplicated; F12.90 Cannabis use, unspecified, uncomplicated; Z86.59 Personal history of other mental and behavioral disorders
CPT/HCPCS: 71046; 99284